=== PATIENT | male | born 2000 | race African-American/Black ===

== ENCOUNTER → 2021-06-21 | Outpatient (CLI) | payer OTHER ==
--- NOTE | 2021-06-21 10:51 | Diagnostic Imaging Report ---
PROCEDURE: CT left upper extremity without contrast. TECHNIQUE: Multiple contiguous axial images were obtained through the left upper extremity without the use of intravenous contrast. Auto Exposure Controls were utilized during the CT exam to meet ALARA standards for radiation dose reduction. INDICATION: Chronic pain in the left wrist. COMPARISON: None FINDINGS: There is a fracture of the proximal pole of the scaphoid, with corticated fragments and sclerosis and subcortical cystlike changes. There is a bone island in the distal capitate. No acute fractures are seen. Alignment otherwise appears normal. No focal osseous lesions are seen. Tendons and ligaments about the wrist demonstrate no acute abnormality. IMPRESSION: 1. Chronic fracture of the proximal pole of the left scaphoid. There is some sclerosis, fragmentation and cystlike change which may be due to osteonecrosis. Dictated by: Dictated on workstation # [id number]
== END ==
LOC: RAD 09:45
PROVIDERS: ATTEND Family Medicine Sports Medicine
DX: M25.532 Pain in left wrist (principal); S62.022 Displaced fracture of middle third of navicular [scaphoid] bone of left wrist; X58.XXXS Exposure to other specified factors, sequela
CPT/HCPCS: 73200